=== PATIENT | male | born 1930 | race Caucasian/White ===

== ENCOUNTER 2017-04-21 05:54 | Emergency (ER) | payer MEDICARE ==
[~2017-04-21] VITALS: Ht 170.2 cm; Wt 78.9 kg
[~2017-04-21 05:54] MED LIST: ASPI81EC; ATOR20 PO; Aspir 8181 MG PO; CLOP75; CLOP75 PO; Calcium Carbon650 MG PO; KONSYL PSYLLIU3.4 GM PO; LEVE500; LEVE500 PO; MELA3 PO; METO25 PO; METO50ER; Nortriptyline H10 MG PO; PRAZ1; Prinivil10 MG PO; RISE5; ROSU10TA; TAMS.4ER; TAMS.4ER PO; TOPROL; VITAMIN B-121000 MCG PO
[2017-04-21 06:27] LABS: BASOPHILS ABSOLUTE AUTO 0.05 K/mm3 (0.00-0.23); BASOPHILS PERCENT AUTO 1 % (0-2); EOSINOPHILS ABSOLUTE AUTO 0.18 K/mm3 (0.00-0.68); EOSINOPHILS PERCENT AUTO 5 % (0-6); Hematocrit 41.7 % (37.0-53.0); Hemoglobin 13.9 g/dL (13.5-17.5); IMMATURE GRAN ABSOLUTE AUTO 0.01 K/mm3 (0.00-0.10); IMMATURE GRAN PERCENT AUTO 0 % (0-1); LYMPHOCYTES ABSOLUTE AUTO 1.02 K/mm3 (0.84-5.20); LYMPHOCYTES PERCENT AUTO 26 % (21-46); MONOCYTES ABSOLUTE AUTO 0.43 K/mm3 (0.16-1.47); MONOCYTES PERCENT AUTO 11 % (4-13); Mean Corpuscular HGB 31.2 pg (26.0-34.0); Mean Corpuscular HGB Conc 33.3 g/dL (31.5-36.5); Mean Corpuscular Volume 94 fL (80-100); NEUTROPHILS ABSOLUTE AUTO 2.23 K/mm3 (1.96-9.15); NEUTROPHILS PERCENT AUTO 57 % (41-73); Platelet Count 182 K/mm3 (150-400); RDW Coefficient Variation 12.4 % (11.7-14.2); RDW Standard Deviation 43.4 fL (35.1-46.3); Red Blood Cell Count 4.45 M/mm3 (4.30-5.90); White Blood Cell Count 3.92 K/mm3 (4.00-11.30)
[2017-04-21 06:49] LABS: Alanine Aminotransfer (ALT/SGP 17 U/L (12-78); Albumin, Blood 3.5 g/dL (3.4-5.0); Albumin/Globulin Ratio 0.9 (0.8-1.8); Alk Phos 57 U/L (50-136); Anion Gap 8 mmol/L (6-16); Aspartate Aminotrans (AST/SGOT 16 U/L (12-37); Bilirubin, Total 0.4 mg/dL (0.1-1.0); Blood Urea Nitrogen 19 mg/dL (8-24); Bun/Creatinine Ratio 21.2 (12.0-20.0); CO2, Blood 26 mmol/L (21-32); Calcium, Blood 8.2 mg/dL (8.5-10.1); Chloride, Blood 107 mmol/L (98-108); Globulin, Blood 3.7 g/dL (2.2-4.0); Glomerular Filtration Rate >60 (60-); Glucose, Blood 89 mg/dL (70-99); Potassium, Blood 4.2 mmol/L (3.5-5.5); Sodium, Blood 141 mmol/L (136-145); Total Protein, Blood 7.2 g/dL (6.4-8.2)
== END 2017-04-21 09:10 | disposition home or self-care (01) ==
LOC: ER 05:54
PROVIDERS: Emergency Medicine
DX: G60.8 Other hereditary and idiopathic neuropathies (principal); Z79.899 Other long term (current) drug therapy; Z79.82 Long term (current) use of aspirin; I25.2 Old myocardial infarction; I10 Essential (primary) hypertension; Z86.73 Personal history of transient ischemic attack (TIA), and cerebral infarction without residual deficits; Z87.891 Personal history of nicotine dependence
CPT/HCPCS: 36415; 70450; 71046; 80053; 85025; 93005; 93010; 99284

== ENCOUNTER → 2018-06-18 | Outpatient (CLI) | payer MEDICARE ==
[2018-06-18 12:09] LABS: Alanine Aminotransfer (ALT/SGP 14 U/L (12-78); Albumin, Blood 3.9 g/dL (3.4-5.0); Albumin/Globulin Ratio 1.1 (0.8-1.8); Alk Phos 74 U/L (50-136); Anion Gap 5 mmol/L (6-16); Aspartate Aminotrans (AST/SGOT 15 U/L (12-37); Bilirubin, Total 0.7 mg/dL (0.1-1.0); Blood Urea Nitrogen 21 mg/dL (8-24); Bun/Creatinine Ratio 23.2 (12.0-20.0); CO2, Blood 28 mmol/L (21-32); Calcium, Blood 8.6 mg/dL (8.5-10.1); Chloride, Blood 106 mmol/L (98-108); Creatinine, Blood 0.91 mg/dL (0.60-1.20); Globulin, Blood 3.7 g/dL (2.2-4.0); Glomerular Filtration Rate >60 (60-); Glucose, Blood 88 mg/dL (70-99); Potassium, Blood 4.2 mmol/L (3.5-5.5); Sodium, Blood 139 mmol/L (136-145); Total Protein, Blood 7.6 g/dL (6.4-8.2)
== END | disposition home or self-care (01) ==
LOC: LAB EV 11:17 → LAB SHORT 11:17
PROVIDERS: Physician Assistant
DX: R60.9 Edema, unspecified (principal)
CPT/HCPCS: 80053; 83880

== ENCOUNTER 2018-08-07 09:54 | Emergency (ER) | payer MEDICARE ==
[~2018-08-07] VITALS: Ht 170.2 cm; Wt 65.3 kg
[2018-08-07 10:38] LABS: BASOPHILS ABSOLUTE AUTO 0.03 K/mm3 (0.00-0.23); BASOPHILS PERCENT AUTO 1 % (0-2); EOSINOPHILS ABSOLUTE AUTO 0.15 K/mm3 (0.00-0.68); EOSINOPHILS PERCENT AUTO 3 % (0-6); Hematocrit 38.4 % (37.0-53.0); Hemoglobin 12.5 g/dL (13.5-17.5); IMMATURE GRAN ABSOLUTE AUTO 0.02 K/mm3 (0.00-0.10); IMMATURE GRAN PERCENT AUTO 0 % (0-1); LYMPHOCYTES PERCENT AUTO 14 % (21-46); MONOCYTES ABSOLUTE AUTO 0.68 K/mm3 (0.16-1.47); MONOCYTES PERCENT AUTO 12 % (4-13); Mean Corpuscular HGB 30.5 pg (26.0-34.0); Mean Corpuscular HGB Conc 32.6 g/dL (31.5-36.5); Mean Corpuscular Volume 94 fL (80-100); Mean Platelet Volume 9.3 fL (9.1-12.4); NEUTROPHILS ABSOLUTE AUTO 3.89 K/mm3 (1.96-9.15); NEUTROPHILS PERCENT AUTO 70 % (41-73); Platelet Count 234 K/mm3 (150-400); RDW Coefficient Variation 12.1 % (11.7-14.2); RDW Standard Deviation 42.2 fL (35.1-46.3); White Blood Cell Count 5.57 K/mm3 (4.00-11.30)
[2018-08-07 10:59] LABS: Alanine Aminotransfer (ALT/SGP 13 U/L (12-78); Albumin/Globulin Ratio 0.8 (0.8-1.8); Alk Phos 89 U/L (50-136); Anion Gap 5 mmol/L (6-16); Aspartate Aminotrans (AST/SGOT 14 U/L (12-37); Bilirubin, Total 0.6 mg/dL (0.1-1.0); Blood Urea Nitrogen 16 mg/dL (8-24); Bun/Creatinine Ratio 18.4 (12.0-20.0); CO2, Blood 28 mmol/L (21-32); Calcium, Blood 8.2 mg/dL (8.5-10.1); Chloride, Blood 102 mmol/L (98-108); Creatinine, Blood 0.87 mg/dL (0.60-1.20); Glomerular Filtration Rate >60 (60-); Glucose, Blood 96 mg/dL (70-99); Potassium, Blood 4.3 mmol/L (3.5-5.5); Sodium, Blood 135 mmol/L (136-145)
[2018-08-07 11:06] LABS: Source, Urine Clean Catch
[2018-08-07 11:23] LABS: Appearance, Urine Clear (Clear); Bilirubin, Urine Neg (Neg); Blood, Urine Neg (Neg); Color, Urine Yellow (P-Yellow); Glucose Qualitative, Urine Neg (Neg); Ketones, Urine Neg (Neg); Leukocyte Esterase, Urine Neg (Neg); Nitrite, Urine Neg (Neg); Protein, Urine Neg (Neg); Urobilinogen, Urine NORM (Normal); pH, Urine 6.5 (5.0-8.0)
[2018-08-07] MEDS ORDERED: Zithromax250 MG PO (12:04)
== END 2018-08-07 12:20 | disposition home or self-care (01) ==
LOC: ER 09:54
PROVIDERS: Internal Medicine
DX: J18.1 Lobar pneumonia, unspecified organism (principal); I10 Essential (primary) hypertension; I25.2 Old myocardial infarction; E78.5 Hyperlipidemia, unspecified; G40.909 Epilepsy, unspecified, not intractable, without status epilepticus; Z87.891 Personal history of nicotine dependence; Z86.73 Personal history of transient ischemic attack (TIA), and cerebral infarction without residual deficits
CPT/HCPCS: 36415; 71046; 71275; 80053; 81003; 84484; 85025; 93005; 93010; 96360-59; 96361; 99284-25; J7120; Q9967

== ENCOUNTER 2018-08-17 13:19 | Observation (INO) | payer MEDICARE ==
[~2018-08-17] VITALS: Ht 170.2 cm; Wt 80.1 kg
[~2018-08-17 13:19] MED LIST changes: +Zithromax250 MG PO
[2018-08-17 14:38] LABS: BASOPHILS ABSOLUTE AUTO 0.04 K/mm3 (0.00-0.23); BASOPHILS PERCENT AUTO 1 % (0-2); EOSINOPHILS PERCENT AUTO 3 % (0-6); Hematocrit 40.9 % (37.0-53.0); Hemoglobin 13.1 g/dL (13.5-17.5); IMMATURE GRAN ABSOLUTE AUTO 0.03 K/mm3 (0.00-0.10); IMMATURE GRAN PERCENT AUTO 0 % (0-1); LYMPHOCYTES ABSOLUTE AUTO 0.78 K/mm3 (0.84-5.20); LYMPHOCYTES PERCENT AUTO 11 % (21-46); MONOCYTES ABSOLUTE AUTO 0.85 K/mm3 (0.16-1.47); MONOCYTES PERCENT AUTO 12 % (4-13); Mean Corpuscular HGB 29.7 pg (26.0-34.0); Mean Corpuscular Volume 93 fL (80-100); NEUTROPHILS PERCENT AUTO 74 % (41-73); Platelet Count 331 K/mm3 (150-400); RDW Coefficient Variation 12.2 % (11.7-14.2); Red Blood Cell Count 4.41 M/mm3 (4.30-5.90)
[2018-08-17 14:58] LABS: Alanine Aminotransfer (ALT/SGP 19 U/L (12-78); Albumin/Globulin Ratio 0.6 (0.8-1.8); Alk Phos 81 U/L (50-136); Anion Gap 5 mmol/L (6-16); Aspartate Aminotrans (AST/SGOT 17 U/L (12-37); Bilirubin, Total 0.5 mg/dL (0.1-1.0); Blood Urea Nitrogen 19 mg/dL (8-24); Bun/Creatinine Ratio 23.7 (12.0-20.0); CO2, Blood 28 mmol/L (21-32); Calcium, Blood 8.4 mg/dL (8.5-10.1); Chloride, Blood 103 mmol/L (98-108); Globulin, Blood 4.7 g/dL (2.2-4.0); Glomerular Filtration Rate >60 (60-); Glucose, Blood 95 mg/dL (70-99); Potassium, Blood 4.4 mmol/L (3.5-5.5); Sodium, Blood 136 mmol/L (136-145); Total Protein, Blood 7.7 g/dL (6.4-8.2)
[2018-08-17 19:11] LABS: Prostate Specific Antigen 0.013 ng/mL (0.000-4.000)
--- NOTE | 2018-08-18 05:51 | NUR ---
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 PT AAOX4 AND A STANDBY ASSIST TO THE BATHROOM. PT ADMITTED WITH PLEURAL EFFUSION W/ POSSIBLE PNA OR POSSIBLE MALIGNANCY IN LUNG. PT TO HAVE THORACENTESIS LATER TODAY. PT O2 SATS 90-92% AT REST BUT DIPS DOWN INTO THE LOW TO MID 80'S WITH ACTIVITY. PLACED PT ON 2L O2 VIA NC. VSS, WILL CONTINUE TO MONITOR.
[2018-08-18 12:12] LABS: International Normalized Ratio 1.03; Prothrombin Time Results 10.9 Sec (9.7-11.5)
--- NOTE | 2018-08-18 17:21 | NUR ---
D/C INSTRUCTIONS PROVIDED AND EXPLAINED TO PT AND PT'S SPOUSE. IV AND TELE REMOVED. PT D/C VIA WHEELCHAIR WITH ESCORT AND SPOUSE.
== END 2018-08-18 15:43 | disposition home or self-care (01) ==
LOC: ER 13:19 → MEDS 13:20
PROVIDERS: Physician Assistant; ADMIT Internal Medicine
DX: J90 Pleural effusion, not elsewhere classified (principal); I10 Essential (primary) hypertension; I25.10 Atherosclerotic heart disease of native coronary artery without angina pectoris; I77.9 Disorder of arteries and arterioles, unspecified; I25.2 Old myocardial infarction; G40.909 Epilepsy, unspecified, not intractable, without status epilepticus; N40.0 Benign prostatic hyperplasia without lower urinary tract symptoms; E78.5 Hyperlipidemia, unspecified; Z86.73 Personal history of transient ischemic attack (TIA), and cerebral infarction without residual deficits; Z79.899 Other long term (current) drug therapy; Z79.82 Long term (current) use of aspirin; Z79.01 Long term (current) use of anticoagulants; Z87.891 Personal history of nicotine dependence; Z85.46 Personal history of malignant neoplasm of prostate
CPT/HCPCS: 36415; 71046; 76700; 80053; 84145; 84153; 84484; 85025; 85610; 85730; 93005; 93010; 94760; 99285-25; G0378

== ENCOUNTER 2018-08-21 14:41 | Day surgery (SDC) | payer MEDICARE ==
[2018-08-21 16:30] LABS: Automated BF RBC Count 0.004 M/mm3 (0-0); Automated BF WBC Count 0.539 K/mm3 (0-999); Body Fluid WBC Count 539 /mm3 (0-999); RBC Count, Body Fluid 4000 /mm3 (0-0)
[2018-08-21 16:47] LABS: Lactate Dehydrogenase, Body Fl 299 U/L
[2018-08-21 17:11] LABS: Appearance, Body Fluid Hazy (Clear); Color, Body Fluid Yellow (None-Yellow)
[2018-08-21 17:35] LABS: Total Cell Count, Body Fluid 100
== END 2018-08-21 23:41 | disposition home or self-care (01) ==
LOC: US 14:41
PROVIDERS: Internal Medicine
DX: J90 Pleural effusion, not elsewhere classified (principal); J18.9 Pneumonia, unspecified organism; Z79.899 Other long term (current) drug therapy
CPT/HCPCS: 32555; 71045; 83615; 88108; 88305; 88341; 88342; 89051

== ENCOUNTER 2018-08-26 04:33 | Observation (INO) | payer MEDICARE ==
[~2018-08-26] VITALS: Ht 170.2 cm; Wt 76.4 kg
[2018-08-26 07:17] LABS: BASOPHILS ABSOLUTE AUTO 0.02 K/mm3 (0.00-0.23); BASOPHILS PERCENT AUTO 0 % (0-2); EOSINOPHILS ABSOLUTE AUTO 0.02 K/mm3 (0.00-0.68); EOSINOPHILS PERCENT AUTO 0 % (0-6); Hematocrit 35.7 % (37.0-53.0); Hemoglobin 11.5 g/dL (13.5-17.5); IMMATURE GRAN ABSOLUTE AUTO 0.06 K/mm3 (0.00-0.10); IMMATURE GRAN PERCENT AUTO 1 % (0-1); LYMPHOCYTES ABSOLUTE AUTO 0.51 K/mm3 (0.84-5.20); LYMPHOCYTES PERCENT AUTO 5 % (21-46); MONOCYTES ABSOLUTE AUTO 0.95 K/mm3 (0.16-1.47); MONOCYTES PERCENT AUTO 9 % (4-13); Mean Corpuscular HGB 29.4 pg (26.0-34.0); Mean Corpuscular HGB Conc 32.2 g/dL (31.5-36.5); Mean Corpuscular Volume 91 fL (80-100); Mean Platelet Volume 9.2 fL (9.1-12.4); NEUTROPHILS ABSOLUTE AUTO 9.14 K/mm3 (1.96-9.15); NEUTROPHILS PERCENT AUTO 85 % (41-73); Platelet Count 286 K/mm3 (150-400); RDW Coefficient Variation 12.3 % (11.7-14.2); RDW Standard Deviation 41.3 fL (35.1-46.3); Red Blood Cell Count 3.91 M/mm3 (4.30-5.90)
[2018-08-26 07:37] LABS: Anion Gap 8 mmol/L (6-16); Blood Urea Nitrogen 27 mg/dL (8-24); Bun/Creatinine Ratio 33.4 (12.0-20.0); CO2, Blood 26 mmol/L (21-32); Calcium, Blood 7.7 mg/dL (8.5-10.1); Chloride, Blood 104 mmol/L (98-108); Creatinine, Blood 0.81 mg/dL (0.60-1.20); Glomerular Filtration Rate >60 (60-); Glucose, Blood 105 mg/dL (70-99); Potassium, Blood 3.9 mmol/L (3.5-5.5); Sodium, Blood 138 mmol/L (136-145)
--- NOTE | 2018-08-26 08:43 | NUR ---
PT ADMITTED PT ADMITTED AT 0835. PT IN STABLE CONDITION WITH VSS. PT ORIENTED TO ROOM. CALL LIGHT IN REACH. AT BEDSIDE
[2018-08-26 08:57] LABS: Total Protein, Blood 6.4 g/dL (6.4-8.2)
--- NOTE | 2018-08-26 10:57 | NUR ---
CODE STATUS PT STATED THAT HE WANTS TO BE A DNR. PT AGREED. PT STATED THAT IF HIS HEART STOPS HE "WANTS TO BE LEFT ALONE" DR. CARROLL CALLED & NOTIFIED. DR. CARROLL STATED SHE WILL ASSESS THIS DURING HER TIME WITH PT. WILL CONTINUE TO MONITOR.
[2018-08-26 11:39] LABS: Automated BF RBC Count 0.005 M/mm3 (0-0); Automated BF WBC Count 0.574 K/mm3 (0-999); Body Fluid WBC Count 574 /mm3 (0-999); RBC Count, Body Fluid 5000 /mm3 (0-0)
[2018-08-26 12:06] LABS: Lactate Dehydrogenase, Body Fl 301 U/L; Protein, Body Fluid 4.4 g/dL
[2018-08-26 12:25] LABS: Total Cell Count, Body Fluid 100
[2018-08-26 12:26] LABS: Appearance, Body Fluid Hazy (Clear)
[2018-08-26 12:59] LABS: pH, Body Fluid 7.5
--- NOTE | 2018-08-26 17:42 | NUR ---
SHIFT SUMMARY PT CHANGED TO DNR STATUS. PT STARTED ON ANTIBIOTICS AFTER BLOOD CULTURES TAKEN. PT WORKED WITH PT THIS SHIFT. PT WALKS WELL WITH A WALKER & STAND BY ASSIST. PT HAD THORACENTESIS COMPLETED THIS SHIFT. 1.2L REMOVED. NO SIGNS OF LEAKAGE/BLEEDING AT INSERTION SITE. NO OTHER CHANGES IN ASSESSMENT AT THIS TIME. VSS. WILL CONTINUE TO MONITOR UNTIL TURNOVER IS COMPLETE.
--- NOTE | 2018-08-27 03:44 | NUR ---
SHIFT SUMMARY PATIENT HAD NO ACUTE CHANGES OBSERVED THIS SHIFT. AXOX 3 AND ONE ASSIST W/FWW TO BSC. TAKES MEDICATION WHOLE WITH WATER. VSS/AFEBRILE. REPORTS BACK PAIN WITH MOVEMENT AND RECEIVES SCHEDULE TYLENOL. PIV REMAINS INTACT. LEASE OUT MAN REPORTS NSR W/FIRST DEGREE AT 75. ON 1.5 L O2 NC. DENIES SOB AND N/V. IV ABX INFUSED. CALL LIGHT IN REACH. BED IN LOWEST POSITION. WILL CONTINUE TO MONITOR UNTIL DAY SHIFT NURSE ASSUMES CARE.
[2018-08-27 05:54] LABS: BASOPHILS ABSOLUTE AUTO 0.03 K/mm3 (0.00-0.23); BASOPHILS PERCENT AUTO 0 % (0-2); EOSINOPHILS PERCENT AUTO 2 % (0-6); Hematocrit 35.9 % (37.0-53.0); Hemoglobin 11.5 g/dL (13.5-17.5); IMMATURE GRAN ABSOLUTE AUTO 0.03 K/mm3 (0.00-0.10); IMMATURE GRAN PERCENT AUTO 0 % (0-1); LYMPHOCYTES ABSOLUTE AUTO 0.58 K/mm3 (0.84-5.20); LYMPHOCYTES PERCENT AUTO 7 % (21-46); MONOCYTES ABSOLUTE AUTO 0.59 K/mm3 (0.16-1.47); MONOCYTES PERCENT AUTO 7 % (4-13); Mean Corpuscular HGB 29.3 pg (26.0-34.0); Mean Corpuscular Volume 91 fL (80-100); Mean Platelet Volume 9.4 fL (9.1-12.4); NEUTROPHILS ABSOLUTE AUTO 6.98 K/mm3 (1.96-9.15); NEUTROPHILS PERCENT AUTO 83 % (41-73); Platelet Count 264 K/mm3 (150-400); RDW Coefficient Variation 12.2 % (11.7-14.2); Red Blood Cell Count 3.93 M/mm3 (4.30-5.90); White Blood Cell Count 8.41 K/mm3 (4.00-11.30)
[2018-08-27 06:23] LABS: Anion Gap 6 mmol/L (6-16); Blood Urea Nitrogen 26 mg/dL (8-24); Bun/Creatinine Ratio 32.9 (12.0-20.0); CO2, Blood 26 mmol/L (21-32); Calcium, Blood 7.7 mg/dL (8.5-10.1); Chloride, Blood 104 mmol/L (98-108); Creatinine, Blood 0.79 mg/dL (0.60-1.20); Glomerular Filtration Rate >60 (60-); Glucose, Blood 94 mg/dL (70-99); Potassium, Blood 3.8 mmol/L (3.5-5.5); Sodium, Blood 136 mmol/L (136-145)
--- NOTE | 2018-08-27 09:01 | NUR ---
CONSTIPATION PT STATES HE IS FEELING CONSTIPATED & REQUESTED A SUPPOSITORY. DR. CARROLL CALLED & NOTIFIED. [facility] ORDERED OT FOR PT. WILL CONTINUE TO MONITOR.
--- NOTE | 2018-08-27 18:10 | NUR ---
SHIFT SUMMARY PT PAIN INCREASING THE SHIFT GOES ON. POSSIBLY DUE TO FATIGUE. PT STATES PAIN INCREASES GREATLY WITH MOVEMENT. PT MEDICATED PER EMAR WITH PAIN MEDICATION. NO OTHER CHANGES IN ASSESSMENT AT THIS TIME. VSS. WILL CONTINUE TO MONITOR UNTIL TURNOVER IS COMPLETE.
--- NOTE | 2018-08-28 03:36 | NUR ---
SHIFT SUMMARY PATIENT HAD NO ACUTE CHANGES OBSERVED THIS SHIFT. AXO X3 AND ONE ASSIST TO BSC. SCHEDULE ULTRAM AND TYLENOL FOR BACK PAIN. VSS/AFEBRILE. DENIES SOB AND N/V. TAKES MEDS WHOLE WITH WATER. PIV REMAINS INTACT. IV ABX INFUSED. SECURITY OPERATIONS MANAGER REPORTS NSR 82. ON 2L O2 NC. BACK PAIN WITH MOVEMENT. CALL LIGHT IN REACH. BED IN LOWEST POSITION. WILL CONTINUE TO MONITOR UNTIL DAY SHIFT NURSE ASSUMES CARE.
[2018-08-28 17:27] LABS: Prostate Specific Antigen 0.015 ng/mL (0.000-4.000)
--- NOTE | 2018-08-28 19:27 | NUR ---
shift summary: no acute changes to report this shift. pt a&o; calm and cooperative with care. compression fx ll2; pt report pain with movement; medicated for pain per emar. tele in place nsr @ 79 per telephone worker during morning assessment. awaiting placement in rehab facility. report given to oncoming rn.
--- NOTE | 2018-08-29 02:19 | NUR ---
PT HAVING SOME INCREASED DYSPNEA ALONG WITH CHEST PAIN, EKG COMPLETED. IV FENTANYL GIVEN PER EMAR ORDER. HOSPITALIST NOTIFIED AND ORDERS RECEIVED. WILL CONTINUE TO MONITOR.
--- NOTE | 2018-08-29 05:17 | NUR ---
SHIFT SUMMARY PT HAS HAD NO FURTHER CHEST PAIN OR INCREASED DYSPNEA. HAS SLEPT FAIR DURING THE NIGHT. OXYGEN ON AT 1L/NC. TELEMETRY REMAINS INTACT. HAS USED THE URINAL DURING THE NIGHT, VOIDED SMALL AMOUNTS DARK YELLOW URINE. WILL CONTINUE TO MONITOR.
[2018-08-29] MEDS ORDERED: ACET325 PO (16:31)
[2018-08-29] MEDS ORDERED: Colace100 MG PO (16:32)
[2018-08-29] MEDS ORDERED: LIDO700A20 TOP (16:32)
[2018-08-29] MEDS ORDERED: Nitrostat0.4 MG SL (16:34)
[2018-08-29] MEDS ORDERED: MIRALAX119 GM PO (16:34)
[2018-08-29] MEDS ORDERED: TRAM50 PO (16:35)
--- NOTE | 2018-08-29 16:45 | NUR ---
SHIFT SUMMARY/ DISCHARGE NOTE PT DISCHARGED TO [facility]. PT LEFT ROOM JUST PRIOR TO THIS NOTE VIA WHEELCHAIR AND TRANSPORTER ESCORT. IV DC'D BY CHARGE NURSE AND BELONGINGS RETURNED. CHUY ARIAS COMPLETED PT DISCHARGE PACKET AND ARRANGED PLACEMENT. REPORT CALLED AND GIVEN TO SHENG NAVA AT [facility] ALSO PRIOR TO THIS NOTE.
== END 2018-08-29 16:15 ==
LOC: ER 04:33 → MEDS 04:34 → ENPENDDIS 08-29 15:29 → MEDS 08-29 16:15
PROVIDERS: Emergency Medicine; Internal Medicine; ADMIT Hospitalist
DX: S32.029A Unspecified fracture of second lumbar vertebra, initial encounter for closed fracture (principal); M51.37 Other intervertebral disc degeneration, lumbosacral region; M43.17 Spondylolisthesis, lumbosacral region; J91.0 Malignant pleural effusion; J96.11 Chronic respiratory failure with hypoxia; I10 Essential (primary) hypertension; I25.10 Atherosclerotic heart disease of native coronary artery without angina pectoris; G40.909 Epilepsy, unspecified, not intractable, without status epilepticus; Z86.73 Personal history of transient ischemic attack (TIA), and cerebral infarction without residual deficits; Z87.891 Personal history of nicotine dependence; Z79.899 Other long term (current) drug therapy; Z79.01 Long term (current) use of anticoagulants; Z79.82 Long term (current) use of aspirin; W19.XXXA Unspecified fall, initial encounter
CPT/HCPCS: 32555; 36415; 71045; 71046; 72131; 73502; 80048; 80069; 82042; 83605; 83615; 83986; 84145; 84153; 84155; 84157; 84484; 85025; 87040; 87070; 87075; 87205; 88108; 88305; 89051; 93005; 93010; 96365; 96366; 96367; 96372; 96375; 96376; 97110; 97116; 97162; 97166; 97530; 97535; 99285-25; A9270; G0378; J0456; J0696; J1885; J3010; J7040; J7050